=== PATIENT | female | born 1940 | race Caucasian/White ===

== ENCOUNTER → 2021-03-29 10:00 | Outpatient (BNVA) | payer MEDICARE, SELFPAY | PROVIDERS: Family Provider Family Medicine; PCP Family Medicine; Referring Provider Internal Medicine; Visit Provider Internal Medicine | DX: I48.91 Unspecified atrial fibrillation (principal); Z20.822 Contact with and (suspected) exposure to COVID-19 | CPT/HCPCS: 87635 ==

== ENCOUNTER 2021-04-04 10:59 | Day surgery (SDC) | payer MEDICARE, SELFPAY ==
--- NOTE | 2021-04-04 11:25 | ANES.PREANE2 ---
Pre-Anesthetic Assessment Pre-Anesthetic Assessment: Height/Weight: Height 1.57 m Proposed Procedure: Operation Date: 04/04/21 12:00 Proposed Procedures p ALYSIA 50014 I48.91(Not Applicable) - Giovanny Pride M.D Was Beta Kenny taken within 24 hours: Yes Was Clonidine taken within 24 hours: N/A Social: Social History: No alcohol and No tobacco Exam: Pre-Anes Outpt Exam: alert, oriented x 3, clear to auscultation bilaterally and regular rate & rhythm (AF) Airway: Submandibular: WNL Cervical ROM: WNL MP: 2 Dentition: False History/ROS: No significant complaints Pulmonary: Pulmonary: None reported CV/HEM: CV/HEM: Arrythmia and HTN : : None reported Hepatic: Hepatic: None reported GI: GI: GERD and None reported (claims not to have nausea or vomiting and no GI upset today) Metabolic: Metabolic: DM and Morbid obesity Musc/skel: Musc/skel: None reported Neuropsych: Neuropsych: None reported Anesthetic Plan: ASA status: 3 Anesthesia: Choice Risk of > 500 ml blood loss (7ml/kg in children): No PFSH Anesthesia PFSH: Medical History Anticoagulant long-term use Atrial fibrillation Diabetes Dyslipidemia HTN (hypertension) Surgical History S/P appendectomy S/P carpal tunnel release S/P cholecystectomy S/P hysterectomy Family History Mother Stroke Social History Smoking and tobacco status: never smoked Second hand smoke exposure: Yes Alcohol intake: never Household members: spouse Marital status: service: No Current occupational status: retired History of recent travel: No Current gender identity: Female Data Anesthesia Cardiac Studies: No Data to Display
--- NOTE | 2021-04-04 11:54 | USCV_ITS ---
Jenna Corrales Age: 80 Gender: F : 1940 Exam Date: 04/04/2021 12:32 Ordering Phys: Giovanny Pride M.D ([email or web address]) Technologist: Exam Location: [facility] Indication: AFIB BP: / HR: Rhythm: Sinus Technical Quality: Good MEASUREMENTS (Male / Female) Normal Values Medications Patient given IV sedation by anesthesia service, for details please refer to the anesthesia report. Complications Proc. Components FINDINGS Left Ventricle Normal in size and function Right Ventricle Normal Right Atrium Grossly normal Left Atrium Enlarged LA Appendage No left atrial appendage thrombus is noted IA Septum Intact Mitral Valve Mitral valve is normal. There is mild mitral regurgitation Aortic Valve Tricuspid aortic valve. No aortic stenosis or regurgitation is noted Tricuspid Valve Tricuspid valve is structurally normal. There is moderate tricuspid regurgitation Pulmonic Valve Grossly normal Pericardium Normal Aorta Moderate atherosclerotic plaque noted CONCLUSIONS LV systolic function is normal Left atrial enlargement is noted Mild mitral regurgitation is seen Moderate tricuspid regurigtation seen No BRENT thrombus is seen Plan was to perform ALYSIA/ Cardioversion. Her EKG remained irregular till initiation of the procedure, however, tele monitor showed regular rhythm after the ALYSIA. EKG was performed that showed normal sinus rhythm. Cardioversion aborted Giovanny Pride MD (Electronically Signed) Final Date: 08 April 2021 16:12 S
--- NOTE | 2021-04-04 11:54 | ECG_ITS ---
[facility] Test Date: 2021-04-04 Pat Name: Jenna Corrales Department: Room: Gender: Female Yarn Skeins Examiner: : 1940 Requested By: Giovanny Pride Order Number: [id number] Reading MD: VERNON TOMAS Measurements Intervals [place] Rate: 104 P: NM: QRS: 31 QRSD: 94 T: -5 QT: 376 QTc: 496 Interpretive Statements SINUS TACHYCARDIA LOW QRS VOLTAGE IN PRECORDIAL LEADS [QRS DEFLECTION < 1.0 mV IN CHEST LEADS] NONSPECIFIC ST & T-WAVE ABNORMALITY ABNORMAL RHYTHM ECG Compared to ECG 06/24/2018 07:35:31 Low QRS voltage now present Sinus rhythm no longer present T-wave abnormality still present Electronically Signed On 04-04-2021 21:03:55 CDT by VERNON TOMAS [email or web address]
[2021-04-04 11:57] VITALS: BP 140/97; PULSE 104; RESP 18; TEMP 36.8; O2SAT 96; BMI 34.2
[2021-04-04] MEDS: sodium chloride 0.9% 1,000 ML 30 ML IV (12:04)
[2021-04-04 12:12] LABS: Glucose Point of Care 139 mg/dL (70-110)
--- NOTE | 2021-04-04 12:21 | P.HP_ITS ---
Same Day Surgery H&P Indication for Procedure/HPI DATE OF PROCEDURE: April 04, 2021 CHIEF COMPLAINT/INDICATIONFOR SURGICAL PROCEDURE: Atrial fibrillation with RVR PREOP DIAGNOSIS: Atrial fibrillation with RVR PLANNED PROCEDRUE: Operation Date: 04/04/21 12:00 Proposed Procedures p ALYSIA 10244 I48.91(Not Applicable) - Giovanny Pride M.D Cardioversion 80 years old has history of atrial fibrillation. She takes Xarelto. She also has obesity, dyslipidemia and hypertension. She was seen in the office last month with Blanca denson with RVR. Plan for ALYSIA/cardioversion Medications/Allergies* Home Medications Medication Instructions Recorded Confirmed Type glipizide 5 mg tablet 5 mg PO DAILY 05/24/20 04/04/21 History diltiazem HCl [Cardizem] 60 mg PO BID 03/31/21 04/04/21 History Allergies/Adverse Reactions Allergy/AdvReac Type Severity Reaction Status Date / Time egg Allergy RASH AND Verified 04/04/21 11:48 DIARRHEA Penicillins AdvReac Mild swelling Verified 04/04/21 11:48 and rash Current Medications: Generic Name Dose Route Start Last Admin Trade Name Freq PRN Reason Stop Dose Admin Sodium Chloride 1,000 mls @ 30 mls/hr 04/04/21 11:30 04/04/21 12:04 Sodium Chloride 0.9% IV 04/05/21 11:29 30 mls/hr .Q24H LELE Administration Pertinent History/Comorbid Conditions* Medical History (Updated 08/19/20 @ 19:12 by Giovanny Pride M.D) Anticoagulant long-term use Atrial fibrillation Diabetes Dyslipidemia HTN (hypertension) Surgical History (Updated 05/25/20 @ 16:00 by MIKE Adair) S/P appendectomy S/P carpal tunnel release S/P cholecystectomy S/P hysterectomy Family History (Updated 02/02/20 @ 12:39 by Luz Maria Alexander RN) Stroke Mother Social History Smoking and tobacco status: never smoked Second hand smoke exposure: Yes Alcohol intake: never Household members: spouse Marital status: service: No Current occupational status: retired History of recent travel: No Current gender identity: Female Pertinent Exam Findings alert, oriented x 3, clear to auscultation bilaterally and rate & rhythm not regular Recommendations Surgery/Procedure today (Transesopheageal echocardiogram with cardioversion) Coding Level of Care Code Acute Sales And Marketing Specialist for Carol Ross
--- NOTE | 2021-04-04 12:46 | ECG_ITS ---
[facility] Test Date: 2021-04-04 Pat Name: Jenna Corrales Department: Room: Gender: Female Technical Support Coordinator: : 1940 Requested By: Giovanny Pride Order Number: [id number] Reading MD: VERNON TOMAS Measurements Intervals [place] Rate: 98 P: AR: QRS: 27 QRSD: 100 T: 0 QT: 251 QTc: 320 Interpretive Statements SinusTACHYCARDIA NONSPECIFIC ST & T-WAVE ABNORMALITY ABNORMAL RHYTHM ECG Compared to ECG 04/04/2021 12:06:22 No significant changes Electronically Signed On 04-04-2021 21:01:45 CDT by VERNON TOMAS [email or web address]
[2021-04-04 12:55] VITALS: BP 140/97; PULSE 104; RESP 18; TEMP 36.3; O2SAT 96
[2021-04-04 13:33] VITALS: BP 199/84; PULSE 102; RESP 20; O2SAT 95
== END 2021-04-04 13:42 | disposition home or self-care (01) ==
PROVIDERS: PCP Family Medicine; Visit Provider Internal Medicine
PROC: (CPT 93312; principal; 2021-04-04 12:00)
DX: I48.91 Unspecified atrial fibrillation (principal); Z79.01 Long term (current) use of anticoagulants; E11.9 Type 2 diabetes mellitus without complications; E78.5 Hyperlipidemia, unspecified; I10 Essential (primary) hypertension; I07.1 Rheumatic tricuspid insufficiency; E66.01 Morbid (severe) obesity due to excess calories; Z68.34 Body mass index [BMI] 34.0-34.9, adult
CPT/HCPCS: 36416; 82962; 93005; 93312; 93320; 93325; 96360; J7030

== ENCOUNTER → 2021-11-02 12:53 | Outpatient (BNVA) | payer MEDICARE, SELFPAY | PROVIDERS: PCP Family Medicine; Visit Provider Internal Medicine Cardiovascular Disease | DX: E11.9 Type 2 diabetes mellitus without complications (principal); I48.91 Unspecified atrial fibrillation; I10 Essential (primary) hypertension | CPT/HCPCS: 99213 ==

== ENCOUNTER 2022-03-21 09:56 | Outpatient (CLI) | payer MEDICARE, SELFPAY ==
--- NOTE | 2022-03-21 10:10 | US_ITS ---
WS: [id number] Thyroid ultrasound, 03/21/2022 Clinical Data: GOITER Comparison: None. Findings: The right lobe of thyroid measures 4.2 cm x 1.6 cm x 1.2 cm. There is a 1.02 x 1.57 x 1.72 nodule of the mid to inferior right lobe of the thyroid. The left lobe measures 4.2 cm x 1.0 cm x 1.1 cm. The isthmus measured 0.2 mm. The echotexture of the thyroid is heterogeneous. No cysts are seen. US/US thyroid [id number] Impression: 1. Nodule right lobe of the thyroid. 2. Heterogeneous echotexture.
== END 2022-03-21 09:57 | disposition home or self-care (01) ==
LOC: RAD 09:57
PROVIDERS: PCP Family Medicine; Visit Provider Family Medicine
DX: E04.1 Nontoxic single thyroid nodule
CPT/HCPCS: 76536

== ENCOUNTER → 2022-05-03 14:20 | Outpatient (BNVA) | payer MEDICARE, SELFPAY | PROVIDERS: PCP Family Medicine; Visit Provider Internal Medicine | DX: I25.10 Atherosclerotic heart disease of native coronary artery without angina pectoris (principal); I10 Essential (primary) hypertension; I48.91 Unspecified atrial fibrillation; E78.5 Hyperlipidemia, unspecified; Z79.01 Long term (current) use of anticoagulants; E11.9 Type 2 diabetes mellitus without complications | CPT/HCPCS: 99213; 99214 ==

== ENCOUNTER → 2022-11-01 12:20 | Outpatient (BNVA) | payer MEDICARE, SELFPAY | PROVIDERS: PCP Family Medicine; Visit Provider Specialist | DX: I48.91 Unspecified atrial fibrillation (principal); E78.5 Hyperlipidemia, unspecified; I10 Essential (primary) hypertension; Z79.01 Long term (current) use of anticoagulants | CPT/HCPCS: 93005; 99213 ==

== ENCOUNTER → 2023-05-02 15:24 | Outpatient (BNVA) | payer MEDICARE, SELFPAY | PROVIDERS: PCP Family Medicine; Visit Provider Internal Medicine | DX: I25.10 Atherosclerotic heart disease of native coronary artery without angina pectoris (principal); I10 Essential (primary) hypertension; I48.91 Unspecified atrial fibrillation; E78.5 Hyperlipidemia, unspecified; Z79.01 Long term (current) use of anticoagulants; E11.9 Type 2 diabetes mellitus without complications; Z79.84 Long term (current) use of oral hypoglycemic drugs | CPT/HCPCS: 99214 ==

== ENCOUNTER 2023-09-02 11:10 | Emergency (ER) | payer MEDICARE, SELFPAY ==
[2023-09-02] VITALS (9 sets, daily range): BP systolic 151–177; BP diastolic 65–109; PULSE 72–102; RESP 18–29; TEMP 37.9; O2SAT 95–99; BMI 33.2
--- NOTE | 2023-09-02 11:15 | CT_ITS ---
WS: [id number] CT HEAD NONCONTRAST HISTORY: AMS TECHNIQUE: Contiguous axial imaging performed through the brain in 2.5 mm imaging. Bone and soft tiss ue windows. Sagittal and coronal reformats reviewed. All CT scans at [facility] use at least one of these dose optimization techniques: automated exposure control; mA and/or kV adjustment per pa tient size (includes targeted exams where dose is matched to clinical indication); or iterative recon struction. DLP: 2298.58 mGy.cm COMPARISON: None available. Quality this examination is moderately compromised by the extent of motion artifact. Increased density in the posterior RIGHT parieto-occipital junction is acute blood. Due to the amount of motion artifact this is probably a small amount of hemorrhagic bleeding within the cortex or suba rachnoid blood or combination of both. No obvious midline shifting at this time. There is significant atrophy and small vessel ischemic disease. Ventricles and extra-axial spaces are dilated on the basis of atrophy. No midline shift. Ventricles: Mild ventriculomegaly. No inferior displacement of the cerebellar tonsils. Paranasal sinuses: As visualized are clear. Mastoid air cells: Well pneumatized. Calvarium and scalp: No abnormality but limited by motion. IMPRESSION: 1. The study is significantly compromised by motion. 2. Acute RIGHT parietal occipital hemorrhage. The exact location is difficult to determine but this is probably subarachnoid blood but there may be cortical hemorrhage also. There is no midline shift o r mass effect. 3. Extensive cerebral atrophy and small vessel ischemic disease. Notified Jeremiah Hills MD at 09/02/2023 1:01 PM.
--- NOTE | 2023-09-02 11:15 | XRR_ITS ---
PROCEDURE INFORMATION: Exam: XR Chest Exam date and time: 09/02/2023 11:28 AM Age: 82 years old Clinical indication: Other: AMS TECHNIQUE: Imaging protocol: Radiologic exam of the chest. Views: 1 view. COMPARISON: No relevant prior studies available. FINDINGS: Lungs: Suspect granulomatous changes.. No consolidation. Pleural spaces: Unremarkable. No pleural effusion. No pneumothorax. Heart/Mediastinum: Mild cardiomegaly. Bones/joints: Unremarkable. XR/XR chest 1V portable [id number] IMPRESSION: No acute findings.
--- NOTE | 2023-09-02 11:15 | W.ED.AMS ---
HPI - Altered Mental Status General: Chief Complaint: Altered Mental Status Stated Complaint: coffee emesis, ams, febrile Time Seen by Provider: 09/02/23 11:12 History of Present Illness: 82-year-old female from the long-term care facility via EMS personnel presents per EMS and half-way nursing staff stating that the patient has altered mental status from previous. There is no known well time that was initially provided per the EMS personnel the nurse that was on today taking care of the patient states that she last saw her well 1 week ago. 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 She is a diabetic and EMS states that her blood glucose levels are over 400. shelter staff state to the EMS personnel that the patient is normally able to talk and today she is unable to talk and that is however half-way nursing staff felt that she had altered mental status. Review of Systems General: Reports: ROS unobtainable due to medical condition and ROS unobtainable due to mental status PFSH ED PFSH: Medical History Anticoagulant long-term use Atrial fibrillation Diabetes Dyslipidemia HTN (hypertension) Surgical History S/P appendectomy S/P carpal tunnel release S/P cholecystectomy S/P hysterectomy Family History Mother Stroke Social History Smoking and tobacco/nicotine status: never used tobacco/nicotine Second hand smoke exposure: Yes Alcohol intake: never Substance/Drug Use: never Caregiver/support person: Yes Lives independently: Yes Household members: spouse Marital status: service: No Current occupational status: retired Current gender identity: Female Special keo needs: No Physical Exam Narrative: Constitutional: the patient appears uncomfortable and in distress. normal development. Vital signs reviewed as documented. She is presently nonverbal and has right-sided residual deficits from her previous CVA. HENMT: Normocephalic, atraumatic. External ears normal appearance without drainage. Nose without drainage, normal appearance. Mucus membranes moist. Neck is supple, No jugular venous distension, trachea is midline, no appreciable carotid bruits. No lymphadenopathy. No meningeal signs. Flexion, extension and lateral rotation is without pain. Eyes: Pupils are equal, round, reactive to light and accommodation. No scleral icterus. Extra-ocular movement are intact. Thorax is symmetrical and with equal rise and fall with respirations. Resp: Lungs are clear to auscultation, although decreased bilaterally in the bases. No wheezes, rales, crackles or ronchi at present. Cardio: Atrial fibrillation rate controlled.. Positive S1, S2. No appreciable murmurs, rubs or gallops. GI: Abdominal exam reveals normal bowel sounds to all quadrants. No organomegaly. No obvious palpable masses noted. No hepatomegally appreciated. Soft, non-tender to palpation. Extremity: Extremities are non-edematous and both femoral and pedal pulses are 2+ and equal bilaterally. Moves all extremities well, sensation in all extremities. Neuro: Alert and awake. Right-sided residual deficits to the right upper and lower extremities. Nonverbal. Psych: Cooperative, calm, normal thought process, appropriate judgment. Skin: No lesions, rashes. No gross abnormalities noted. Back: Symmetrical, no obvious deformity, No CVA tenderness Course ED course: I reviewed the CT scan and noted acute intracranial bleeding I have ordered TXA and Andexxa and contacted [facility] in [facility] and Dr. Starkey neurosurgery immediately excepted for transfer. Vital Signs: Vital signs: Vital Signs Temperature 100.3 F H 09/02/23 11:12 Pulse Rate 102 H 09/02/23 13:30 Respiratory Rate 28 H 09/02/23 13:30 Blood Pressure 160/82 09/02/23 13:30 Pulse Oximetry 96 09/02/23 13:30 Oxygen Delivery Me thod Nasal Cannula 09/02/23 13:00 Oxygen Flow Rate 2 09/02/23 13:00 MDM - Altered Mental Status Medical Decision Making Physical exam completed and documented, I will obtain POC glucose check and treat accordingly. I will obtain a chest x-ray and if indicated a CT scan of the head without contrast to evaluate for intracranial hemorrhage and if indicated a CTA scan of the head and neck for evaluation of acute ischemic vessel occlusion. I have reviewed previous and pertinent medical records for assist in obtaining beneficial medical information to improved the care and treatment of the patient. I will obtain a catheterized urine sample as well as blood cultures, influenza and COVID screen and a chest x-ray given the patient's reported fever. Medical Records I reviewed the patient's medical records. Lab Data I reviewed the patient's lab results. 09/02/23 11:52 09/02/23 11:45 Radiology Impressions Chest X-Ray 09/02/23 11:15 IMPRESSION: No acute findings. Laboratory Results WBC 19.80 10^3/uL (3.29-11.43) H 09/02/23 11:52 RBC 5.86 10^6/uL (3.85-5.65) H 09/02/23 11:52 Hgb 12.50 g/dL (11.27-16.99) 09/02/23 11:52 Hct 41.5 % (36-47) 09/02/23 11:52 MCV 70.8 fl (85-98) L 09/02/23 11:52 MCH 21.3 pg (27-33) L 09/02/23 11:52 MCHC 30.1 g/dL (30-55) 09/02/23 11:52 RDW 18.5 % (12.1-15.1) H 09/02/23 11:52 Plt Count 372 10^3/cmm (157-399) 09/02/23 11:52 MPV 11.7 fL (7.4-10.4) H 09/02/23 11:52 Neut % (Auto) 83.9 % 09/02/23 11:52 Lymph % (Auto) 7.9 % 09/02/23 11:52 [place] % (Auto) 6.4 % 09/02/23 11:52 Eos % (Auto) 0.1 % 09/02/23 11:52 Baso % (Auto) 0.7 % 09/02/23 11:52 Neut # (Auto) 16.62 10^3/uL (1.8-7.7) H 09/02/23 11:52 Lymph # (Auto) 1.6 10^3/uL (0.8-4.8) 09/02/23 11:52 [place] # (Auto) 1.3 10^3/uL (0.2-0.9) H 09/02/23 11:52 Eos # (Auto) 0.0 10^3/uL (0.0-0.8) 09/02/23 11:52 Baso # (Auto) 0.1 10^3/uL (0.0-0.1) 09/02/23 11:52 Nucleated RBC % (auto) 0 % 09/02/23 11:52 Nucleated RBCs # 0.0 /100WBC 09/02/23 11:52 PT 20.20 SECONDS (12.1-14.9) H 09/02/23 12:31 INR 1.66 (0.8-1.2) H 09/02/23 12:31 APTT 34.0 SECONDS (23.9-36.7) 09/02/23 12:31 Sodium 132 mmol/L (136-145) L 09/02/23 11:45 Potassium 3.5 mmol/L (3.5-5.1) 09/02/23 11:45 Chloride 87 mmol/L (98-107) L 09/02/23 11:45 Carbon Dioxide 23 mmol/L (22-29) 09/02/23 11:45 Anion Gap 25.5 (5-19) H 09/02/23 11:45 BUN 13 mg/dL (8-23) 09/02/23 11:45 Creatinine 0.7 mg/dL (0.5-0.9) 09/02/23 11:45 GFR Calculation Not Reportable 09/02/23 11:45 Glucose 329 mg/dL (65-115) H 09/02/23 11:45 Calculated Osmolality 287 mOsm/kg (285-295) 09/02/23 11:45 Lactic Acid 2.3 mmol/L (0.5-2.2) H 09/02/23 12:31 Calcium 9.6 mg/dL (8.5-10.5) 09/02/23 11:45 Total Bilirubin 1.4 mg/dL (0.15-1.2) H 09/02/23 11:45 AST 65 U/L (0-32) H 09/02/23 11:45 ALT 75 U/L (0-33) H 09/02/23 11:45 Alkaline Phosphatase 636 U/L (35-105) H 09/02/23 11:45 Total Protein 8.1 g/dL (6.6-8.7) 09/02/23 11:45 Albumin 3.8 g/dL (3.5-5.2) 09/02/23 11:45 Globulin 4.3 g/dL (1.3-4.6) 09/02/23 11:45 Procalcitonin 0.20 ng/mL (0-0.5) 09/02/23 11:45 Serum Ketones Negative (Negative) 09/02/23 12:31 Influenza Type A Ag negative (Negative) 09/02/23 11:37 Influenza Type B Ag negative (Negative) 09/02/23 11:37 SARS-CoV-2 Ag (Rapid) negative (Negative) 09/02/23 11:37 All radiology interpretation(s) finalized by discharge Critical Care Time Critical Care Time: Critical Care Time: Yes Total Critical Care Time: 60 Attestation: The patients was emergently evaluated as this patient's presentation and case had a high probability of a clinically significant, sudden, or life threatening deterioration of this patient's initial critical presentation or condition which required my full and direct attention, intervention and personal management. Discharge Plan Discharge Patient Disposition: Xfer Short-Term Hosp Clinical Impression: Intracranial hemorrhage, Acute alteration in mental status Condition: Stable Referrals: Ryland Small MD [Primary Care Provider] - Patient Instructions: Altered Mental Status (ED) Coding Level of Care Code ED Cooker Sulfite for Carol Ross
[2023-09-02 12:03] LABS: SARS Covid-2 Antigen negative (Negative)
[2023-09-02 12:04] LABS: Influenza A by IFA negative (Negative); Influenza B by IFA negative (Negative)
[2023-09-02 12:26] LABS: Basophils # 0.1 10^3/uL (0.0-0.1); Basophils % 0.7 %; Eosinophils % 0.1 %; Hematocrit 41.5 % (36-47); Lymphocytes # 1.6 10^3/uL (0.8-4.8); Lymphocytes % 7.9 %; Mean Corpuscular HGB Conc 30.1 g/dL (30-55); Mean Corpuscular Hemoglobin 21.3 pg (27-33); Mean Corpuscular Volume 70.8 fl (85-98); Mean Platelet Volume 11.7 fL (7.4-10.4); Monocytes # 1.3 10^3/uL (0.2-0.9); Monocytes % 6.4 %; Neutrophils # 16.62 10^3/uL (1.8-7.7); Neutrophils % 83.9 %; Nucleated Red Blood Cells % 0 %; Platelet Count 372 10^3/cmm (157-399); Red Blood Count 5.86 10^6/uL (3.85-5.65); Red Cell Distribution Width 18.5 % (12.1-15.1)
[2023-09-02 12:53] LABS: Alanine Aminotransferase 75 U/L (0-33); Albumin Level 3.8 g/dL (3.5-5.2); Alkaline Phosphatase 636 U/L (35-105); Anion Gap 25.5 (5-19); Aspartate Amino Transferase 65 U/L (0-32); Blood Urea Nitrogen 13 mg/dL (8-23); Calcium 9.6 mg/dL (8.5-10.5); Carbon Dioxide 23 mmol/L (22-29); Chloride 87 mmol/L (98-107); Globulin 4.3 g/dL (1.3-4.6); Glucose 329 mg/dL (65-115); Osmolality Calculated 287 mOsm/kg (285-295); Potassium 3.5 mmol/L (3.5-5.1); Sodium 132 mmol/L (136-145); Total Bilirubin 1.4 mg/dL (0.15-1.2); Total Protein 8.1 g/dL (6.6-8.7)
[2023-09-02 12:55] LABS: INR 1.66 (0.8-1.2); Ketone (Acetest) Serum Negative (Negative)
--- NOTE | 2023-09-02 12:58 | PC.PHAR ---
pt is from [facility] [phone]-per howie from [facility] states the pt only took cardizem 120mg 24 hour cap today and ultram 50mg bid prn today-
[2023-09-02 13:03] LABS: Lactic Sepsis W/Reflex 2.3 mmol/L (0.5-2.2)
[2023-09-02] MEDS: tranexamic acid 1,000 MG/100 ML PREMIX 600 MG IV (13:13)
[2023-09-02] MEDS: factor xa, inactivated-zhzo 400 MG in empty flexible container 1 EACH, non-DEHP filter ... 180 MG IV (13:40)
[2023-09-02 14:26] LABS: Reflex Lactate Order REFLEX LACTIC ORDERD
== END 2023-09-02 13:54 | disposition short-term general hospital (02) ==
PROVIDERS: Emergency Provider Internal Medicine; PCP Family Medicine
DX: I62.9 Nontraumatic intracranial hemorrhage, unspecified (principal); R41.82 Altered mental status, unspecified; Z77.22 Contact with and (suspected) exposure to environmental tobacco smoke (acute) (chronic); E11.9 Type 2 diabetes mellitus without complications; E78.5 Hyperlipidemia, unspecified; I10 Essential (primary) hypertension; Z11.52 Encounter for screening for COVID-19
CPT/HCPCS: 36415; 70450; 71045; 80053; 82009; 83605; 84145; 85025; 85610; 85730; 87040; 87426; 87804; 96365; 96375; 99285; J7169